=== PATIENT | male | born 1985 | race Caucasian/White ===

== ENCOUNTER 2021-07-09 18:28 | Observation (INO) | payer SELFPAY ==
[~2021-07-09] VITALS: Ht 157.5 cm; Wt 44.5 kg
--- NOTE | 2021-07-09 18:57 | NUR ---
PT ASHOK FROM [facility], PT STATES HE IS ALLERGIC TO THE SMOKE AND HAS FACIAL SWELLING AND TONGUE SWELLING, PT A/OX3, PT ARRIVED WITH AN IV IN PLACE BUT WHEN EMS FLUSHED THE IV IT BLEW, PT GIVEN 50MG OF IV BENADRYL EN ROUTE
--- NOTE | 2021-07-09 19:01 | NUR ---
PTS TONGUE IS NOTICABLY SWOLLEN, AT BEDSIDE TO DISCUSS POC
[2021-07-09 19:21] LABS: PH, VENOUS 7.362 pH (7.320-7.420)
[2021-07-09 19:22] LABS: BASOPHILS % (AUTO) 2 % (0-1); EOSINOPHILS % (AUTO) 1 % (1-7); LYMPHOCYTES % (AUTO) 19 % (22-44); MEAN CORPUSCULAR HGB CONC 33.2 g/dL (33.2-36.2); MEAN PLATELET VOLUME 8.2 fL (7.4-10.4); MONOCYTES % (AUTO) 6 % (2-9); NEUTROPHILS % (AUTO) 72 % (42-75); O2 FLOW ROOM AIR L/min; PLATELET COUNT 697 x10^3/uL (130-400); RED BLOOD COUNT 4.68 x10^6/uL (4.38-5.82); RED CELL DISTRIBUTION WIDTH 15.4 % (9.4-14.8)
[2021-07-09] MEDS ORDERED: DEXAMETHASONE 4 MG/ML, 1ML IVPush ONE (19:30)
[2021-07-09] MEDS ORDERED: SODIUM CHLORIDE 0.9% 1,000ML IVBOLUS ONE ×2 (19:30→22:00)
[2021-07-09 19:34] LABS: ALANINE AMINOTRANSFERASE 88 U/L (12-78); ALBUMIN 3.6 g/dL (3.4-5.0); ANION GAP 13 mmol/L (5-15); CALCIUM 10.4 mg/dL (8.5-10.1); CHLORIDE 87 mmol/L (98-107); CREATININE 1.26 mg/dL (0.7-1.3)
[2021-07-09 19:36] LABS: ALKALINE PHOSPHATASE 229 U/L (45-117); BILIRUBIN,TOTAL 0.5 mg/dL (0.2-1.0); TOTAL PROTEIN 9.4 g/dL (6.4-8.2)
[2021-07-09] MEDS ORDERED: LORazepam 2 MG/ML, 1ML ONE (19:45)
[2021-07-09] MEDS: LORazepam 2 MG/ML, 1ML IM PRN ×2 (19:51→22:16)
--- NOTE | 2021-07-09 19:53 | NUR ---
REPORT FROM [facility] CALLED WITH CRITICAL SERUM GLUCOSE OF [id number]- ERP MADE AWARE
[2021-07-09] MEDS ORDERED: OLANZAPINE 10 MG INJ IM ONE ×2 (19:56→20:30)
[2021-07-09] MEDS ORDERED: PLEASE ENTER ALLERGIES MC SCH (20:00)
--- NOTE | 2021-07-09 20:00 | NUR ---
UNABLE TO OBTAIN PIV PATIENT TOO ERRATIC. ERP MADE AWARE. TO ADMIN ATIVAN AND ZYPREXA IM THEN PIVS
[2021-07-09] MEDS ORDERED: DEXAMETHASONE 4 MG/ML, 1ML ONE (20:12)
--- NOTE | 2021-07-09 20:24 | NUR ---
with reassessment patient much calmer: patient tolerating telemetry pads, 2l nc (now sleepy, to place pivs shortly
[2021-07-09 20:42] LABS: ACETONE, SERUM Negative (Negative)
--- NOTE | 2021-07-09 21:00 | NUR ---
ua sent, piv placed-medicated per emar
[2021-07-09 21:37] LABS: AMPHETAMINE SCREEN, URINE Positive (Negative); BARBITURATE SCREEN, URINE Negative (Negative); BENZODIAZEPINE SCREEN, URINE Negative (Negative); CANNABINOID SCREEN, URINE Negative (Negative); COCAINE SCREEN, URINE Negative (Negative); METHADONE SCREEN, URINE Negative (Negative); OPIATE SCREEN, URINE Negative (Negative)
[2021-07-09] MEDS ORDERED: INSULIN REGULAR 100 UNITS/ML, 3ML VIAL SQ-INSULIN SCH (22:00)
--- NOTE | 2021-07-09 22:10 | NUR ---
patient now deep aslepp-vss on room air 1l ns complete- repeat fsbs 347, 2nd liter of ns started
--- NOTE | 2021-07-09 22:16 | NUR ---
ERP WOULD LIKE TO DEFER INSULIN FSBS DROPIING WITH IVF-RN ICU AGREEABLE
--- NOTE | 2021-07-09 22:54 | NUR ---
2l of ns complete- fsbs 313
--- NOTE | 2021-07-09 22:55 | NUR ---
report to perry jordan
--- NOTE | 2021-07-09 23:09 | NUR ---
report to perry jordan
--- NOTE | 2021-07-09 23:20 | NUR ---
recieved report from nikki rollins
--- NOTE | 2021-07-10 00:59 | NUR ---
PATIENT SLEEPING ON GUNESS [place]WR[place] AT THIS TIME, VSS WILL CONTINUE TO MONITOR.
--- NOTE | 2021-07-10 02:48 | NUR ---
Patient sleeping on NESS lopez at this time, VSS, will continue to monitor.
--- NOTE | 2021-07-10 03:29 | NUR ---
Patient sleeping on NESS lopez at this time, VSS, will continue to monitor.
--- NOTE | 2021-07-10 04:37 | NUR ---
Patient sleeping on NESS lopez at this time, VSS, will continue to monitor.
[2021-07-10 05:39] VITALS: BP 109/68
--- NOTE | 2021-07-10 05:43 | NUR ---
Report received from MANINDER Lang. This RN to assume care.
--- NOTE | 2021-07-10 06:01 | NUR ---
Woke patient up. Patient AAOx4, GCS 15. Patient discharge instructions given. Patient unwilling to leave. Security contact to assist. Patient escorted out; ambulatory with a steady gait. Belongings with patient.
== END 2021-07-10 06:04 | disposition home or self-care (01) ==
LOC: ED 22:10 → EDIP 07-10 01:49
PROVIDERS: ADMIT Emergency Medicine; ATTEND Emergency Medicine
DX: F15.959 Other stimulant use, unspecified with stimulant-induced psychotic disorder, unspecified (principal); G40.909 Epilepsy, unspecified, not intractable, without status epilepticus; E11.65 Type 2 diabetes mellitus with hyperglycemia; F17.200 Nicotine dependence, unspecified, uncomplicated; Z79.4 Long term (current) use of insulin; Z79.899 Other long term (current) drug therapy
CPT/HCPCS: 36415; 80053; 80307; 82010; 82803; 82962; 85025; 96361; 96372; 96374; 99284; G0378; J1100; J2060; J7030